=== PATIENT | female | born 1975 | race Caucasian/White ===

== ENCOUNTER 2017-02-11 15:02 | Emergency (ER) | payer MEDICAID ==
--- NOTE | 2017-02-11 15:39 | ED Physician Chart ---
ED Chief Complaint/HPI - Patient Information Date Seen:: 02/11/17 Time Seen:: 15:30 Chief Complaint:: right flank pain History of Present Illness:: patient has had right flank pain and dysuria for 3 days. No chills or fever. Historian:: Patient Review:: Nurse's Note Reviewed ED Review of Systems - Review of Systems General/Constitutional: No fever, No chills Skin: No skin lesions Head: No headache Eyes: No loss of vision ENT: No earache Neck: No neck pain Cardio Vascular: No chest pain, No palpitations Pulmonary: No SOB GI: No nausea, No vomiting G/U: Dysuria, Other (right flank pain) Musculoskeletal: Back pain Endocrine: No polyuria, No polydipsia Psychiatric: No prior psych history, No depression, No anxiety Hematopoietic: No bruising Allergic/Immuno: No urticaria Neurological: No syncope Family Medical History - Family Member Mother Ethnicity: Living Status: Hx Family Diabetes: Yes ED Physical Exam - Physical Examination General/Constitutional: Awake, Alert, No distress Head: Atraumatic Eyes: Lids, conjuctiva normal, PERRL Skin: Nl inspection, No rash ENMT: External ears, nose nl, Lips, teeth, gums nl Neck: No nuchal rigidity Respiratory: Nl effort/Exclusion, Clear to Auscultation Cardio Vascular: RRR, No murmur, gallop, rubs GI: No tenderness/rebounding/guarding, No organomegaly Other comments:: right flank tenderness Extremities: Normal digits & nails Neuro/Psych: Alert/oriented Misc: Normal back Other Misc comments:: right flank tenderness ED Labs/Radiology/EKG Results - Lab Results Comments:: Laboratory Results - last 24 hr 02/11/17 02/11/17 16:00 16:00 Urine Source MIDSTREAM Urine Color YELLOW Urine Clarity HAZY Urine pH 6.0 Ur Specific [employer] 1.015 Urine Protein TRACE Urine Glucose (UA) NEGATIVE Urine Ketones NEGATIVE Urine Blood LARGE H Urine Nitrate NEGATIVE Urine Bilirubin NEGATIVE Urine Urobilinogen 0.2 Ur Leukocyte Esterase NEGATIVE Urine RBC 25-50 H Urine WBC NONE SEEN Ur Epithelial Cells NONE SEEN Urine Bacteria NONE SEEN Urine Test NEGATIVE - Radiology Results Results: Renal ultrasound: mild right hydronephrosis ED Septic Shock - . Is Septic Shock (SBP<90, OR Lactate>4 mmol\L) present?: No ED Reassessment (Disposition) - Reassessment Reassessment:: at 1956 pain much improved Reassessment Condition:: Improved - Diagnosis Diagnosis:: right ureteral calculus - Aftercare/Follow up Instructions Aftercare/Follow-Up Instructions:: Refer to Discharge Instructions Medication Prescribed:: Ibuprofen 400 mg #30 Sig 1 TID - Patient Disposition Discharge/Transfer:: Home Condition at Disposition:: Stable, Improved
[2017-02-11 16:31] LABS: URINE BILIRUBIN NEGATIVE (NEGATIVE); URINE BLOOD LARGE (NEGATIVE); URINE GLUCOSE (UA) NEGATIVE (NEGATIVE); URINE KETONE NEGATIVE (NEGATIVE); URINE PROTEIN TRACE mg/dL (NEGATIVE); URINE UROBILINOGEN 0.2 E.U./dL (0.2 - 1.0)
[2017-02-11 16:39] LABS: URINE BACTERIA NONE SEEN /hpf (NONE SEEN); URINE COLOR YELLOW; URINE EPITHELIAL CELLS NONE SEEN /lpf (FEW); URINE RBC 25-50 /hpf (0-5); URINE WBC NONE SEEN /hpf (0-5)
--- NOTE | 2017-02-12 08:06 | Diagnostic Imaging Report ---
Renal ultrasound HISTORY: flank pain and hematuria. COMPARISON: None Technique: Sonography of the kidneys and urinary bladder was performed in multiple planes. FINDINGS: The right kidney measures 12.9 x 5.3 cm. There is mild right hydronephrosis. No sonographic evidence of renal stones. The left kidney measures 11.7 x 5.6 cm. No evidence of focal lesions or hydronephrosis. The prevoid bladder volume is 144 mL's. The postvoid bladder volume is 30 mL. IMPRESSION: Mild right hydronephrosis. Mild increased size of right kidney is also noted. No sonographic evidence of renal stones. If indicated CT examination may be obtained for further assessment of this finding. No evidence of elevated postvoid residual bladder volumes.
== END 2017-02-11 20:15 | disposition home or self-care (01) ==
LOC: ER 15:02
DX: N20.1 Calculus of ureter (principal)
CPT/HCPCS: 99285; 96372; 76770; 81001; 81025; J1885

== ENCOUNTER 2017-11-10 16:27 | Emergency (ER) | payer MEDICAID ==
--- NOTE | 2017-11-10 17:47 | ED Physician Chart ---
ED Chief Complaint/HPI - Patient Information Date Seen:: 11/10/17 Time Seen:: 16:30 Chief Complaint:: Left Foot Pain History of Present Illness:: onset x 3 hours of left foot pain after an accidental dropping of an object on pt's left toes/foot; pt's last tetanus shot: < 5 years; UTD; pt denies weakness , dizziness, paresthesias, vertigo, decreased activity, visual or gait changes, H/As, neck pain, C/P, SOB, Abd. Pain, A/N/V/D/C, fever, chills, or urinary s/s Allergies:: Allergies Allergy/AdvReac Type Severity Reaction Status Date / Time No Known Allergies Allergy Verified 02/11/17 16:15 Vitals:: Vital Signs - 8 hr 11/10/17 16:29 Temp 98.2 F HR 85 RR 18 BP 134/68 O2 Sat % 100 Historian:: Patient, Family Member Review:: Nurse's Note Reviewed ED Review of Systems - Review of Systems General/Constitutional: No fever, No chills, No weight loss, No weakness, No diaphoresis, No edema, No loss of appetite Skin: No skin lesions, No rash, No bruising Head: No headache, No light-headedness Eyes: No loss of vision, No pain, No diplopia ENT: No earache, No nasal drainage, No sore throat, No tinnitus Neck: No neck pain, No swelling, No thyromegaly, No stiffness, No mass noted Cardio Vascular: No chest pain, No palpitations, No PND, No orthopnea, No edema Pulmonary: No SOB, No cough, No sputum, No wheezing GI: No nausea, No vomiting, No diarrhea, No pain, No melena, No hematochezia, No constipation, No hematemesis G/U: No dysuria, No frequency, No hematuria, No nacturia Unemployment Examiner: No vaginal discharge, No abnormal vaginal bleed, No contraction Musculoskeletal: Bone or joint pain, No back pain, Muscle pain Endocrine: No polyuria, No polydipsia Psychiatric: No prior psych history, No depression, No anxiety, No suicidal ideation, No homicidal ideation, No auditory hallucination, No visual hallucination Hematopoietic: No bruising, No lymphadenopathy Allergic/Immuno: No urticaria, No angioedema Neurological: No syncope, No focal symptoms, No weakness, No paresthesia, No headache, No seizure, No dizziness, No confusion, No vertigo ED Past Medical History - Past Medical History Obtainable: Yes Past Medical History: No significant medical hx Family History: HTN Social History: Non Smoker, No Alcohol, No Drug Use, Surgical History: None Psychiatricy History: None Medication: Reviewed Family Medical History - Family Member Mother History Unknown: Yes Ethnicity: Living Status: Hx Family Diabetes: Yes ED Physical Exam - Physical Examination General/Constitutional: Awake, Well-developed, well-nourished, Alert, No distress, GCS 15, Non-toxic appearing, Ambulatory Head: Atraumatic Eyes: Lids, conjuctiva normal, PERRL, EOMI Skin: Nl inspection, No rash, No skin lesions, No ecchymosis, Well hydrated, No lymphadenopathy ENMT: External ears, nose nl, TM canals nl, Nasal exam nl, Lips, teeth, gums nl , Oropharynx nl, Tonsils nl Neck: Nontender, Full ROM w/o pain, No JVD, No nuchal rigidity, No bruit, No mass, No stridor Other Neck comments:: supple; no meningeal signs; no cervical tenderness Respiratory: Nl effort/Exclusion, Clear to Auscultation, No Wheeze/Rhonchi/Rales Cardio Vascular: RRR, No murmur, gallop, rubs, NL S1 S2, Carotid/Femoral/Distal pulses equal bilaterally GI: No tenderness/rebounding/guarding, No organomegaly, No hernia, Normal BS's, Nondistended, No mass/bruits, No McBurney tenderness, Rectum exam nl Other GI comments:: no pulsatile masses : No CVA tenderness Extremities: No tenderness or effusion, Full ROM, normal strength in all extremities, No edema, Normal digits & nails Other Extremities comments:: Left Foot: + Left 2nd Toe tenderness with no loss of ROMs; no ligament instability; Gait: WNL; good motor, tendon, and sensory functions; good NV functions; no FBs; no cellulitis; no PWs Neuro/Psych: Alert/oriented, DTR's symmetric, Normal sensory exam, Normal motor strength, Judgement/insight normal, Mood normal, Normal gait, No focal deficits Other Neuro/Psych comments:: no focal signs Misc: Normal back, No paraspinal tenderness ED Labs/Radiology/EKG Results - Lab Results Results: Laboratory Tests 11/10/17 16:40 Urine Test NEGATIVE Comments:: UCG: Negative - Radiology Results Comments:: ? Hailine Fx at PP of Left 2nd Toe ED Septic Shock - . Is Septic Shock (SBP<90, OR Lactate>4 mmol\L) present?: No - <6hrs of presentation: Vital Signs: Vital Signs - 8 hr 11/10/17 16:29 Temp 98.2 F HR 85 RR 18 BP 134/68 O2 Sat % 100 ED Reassessment (Disposition) - Reassessment Reassessment:: pt is asymptomatic upon discharge Reassessment Condition:: Improved - Diagnosis Diagnosis:: Dx: Left Toe Pain; Left Second Toe Fracture; Left Foot/Toes Sprains and Strains ; Left Foot/Toes Pain; Left Foot/Toes Injury - Aftercare/Follow up Instructions Aftercare/Follow-Up Instructions:: Counseled pt regarding lab results/diagnosis & need follow up, Refer to Discharge Instructions, Counseled pt & family regarding lab results/diagnosis & need follow up - Patient Disposition Discharge/Transfer:: Home Condition at Disposition:: Stable, Improved (RTER prn if existing s/s reoccur and/or get worse and/or any other new s/s occur; X-Rays Instructions; ACIs given for all above Dx; Refer to Orthopedist/Center Medical Director/Power Washer LEFTY; F/U with PMD in one day or prn; RTER prn if concerned)
--- NOTE | 2017-11-11 08:35 | Diagnostic Imaging Report ---
Left foot 3 views Indication: Trauma Comparison: none Findings: There is blunting involving the second distal phalanx. There appears to be subluxation involving the second proximal interphalangeal joint. No gross fracture is identified. Mild degenerative changes are noted. Mild generalized soft tissue prominence is noted. Impression: Blunting of the second distal phalanx. This may have been due to old trauma or other infectious or inflammatory process. Please correlate with medical history and old exams. Subluxation of the second proximal interphalangeal joint. Please correlate clinically. No gross acute fracture identified. In the setting of trauma, if clinical symptoms persist and there is continued concern for an occult fracture, follow up exams in 5-7 days is suggested.
== END 2017-11-10 19:10 | disposition home or self-care (01) ==
LOC: ER 16:27
DX: S92.502A Displaced unspecified fracture of left lesser toe(s), initial encounter for closed fracture (principal); W20.8XXA Other cause of strike by thrown, projected or falling object, initial encounter; Y93.89 Activity, other specified; Y92.89 Other specified places as the place of occurrence of the external cause; Y99.8 Other external cause status
CPT/HCPCS: 99285; 96372; 73630; 81025; J1885

== ENCOUNTER 2019-02-01 20:35 | Emergency (ER) | payer MEDICAID ==
--- NOTE | 2019-02-01 21:03 | ED Physician Chart ---
ED Chief Complaint/HPI - Patient Information Date Seen:: 02/01/19 Time Seen:: 20:58 Chief Complaint:: headache History of Present Illness:: 43 yr old female with occas headache bp problems who ate salty foods today with neck pain headache 3 pm today some nausea no vomiting Allergies:: Allergies Allergy/AdvReac Type Severity Reaction Status Date / Time No Known Allergies Allergy Verified 02/11/17 16:15 Vitals:: Vital Signs - 8 hr 02/01/19 20:36 Temp 97.5 F HR 84 RR 18 BP 129/57 O2 Sat % 98 ED Review of Systems - Review of Systems General/Constitutional: No fever, No chills, No weight loss, No weakness, No diaphoresis, No edema, No loss of appetite Skin: No skin lesions, No rash, No bruising Head: No headache, No light-headedness Eyes: No loss of vision, No pain, No diplopia ENT: No earache, No nasal drainage, No sore throat, No tinnitus Neck: No neck pain, No swelling, No thyromegaly, No stiffness, No mass noted Cardio Vascular: No chest pain, No palpitations, No PND, No orthopnea, No edema Pulmonary: No SOB, No cough, No sputum, No wheezing GI: No nausea, No vomiting, No diarrhea, No pain, No melena, No hematochezia, No constipation, No hematemesis G/U: No dysuria, No frequency, No hematuria Musculoskeletal: No bone or joint pain, No back pain, No muscle pain Endocrine: No polyuria, No polydipsia Psychiatric: No prior psych history, No depression, No anxiety, No suicidal ideation Hematopoietic: No bruising, No lymphadenopathy Allergic/Immuno: No urticaria, No angioedema Neurological: Headache ED Past Medical History - Past Medical History Past Medical History: No significant medical hx Family Medical History - Family Member Mother History Unknown: Yes Ethnicity: Living Status: Hx Family Diabetes: Yes ED Physical Exam - Physical Examination General/Constitutional: Awake, Well-developed, well-nourished, Alert, No distress, GCS 15, Non-toxic appearing, Ambulatory Head: Atraumatic Eyes: Lids, conjuctiva normal, PERRL, EOMI Skin: Nl inspection, No rash, No skin lesions, No ecchymosis, Well hydrated, No lymphadenopathy ENMT: External ears, nose nl, Nasal exam nl, Lips, teeth, gums nl Neck: Nontender, Full ROM w/o pain, No JVD, No nuchal rigidity, No bruit, No mass, No stridor Respiratory: Nl effort/Exclusion, Clear to Auscultation, No Wheeze/Rhonchi/Rales Cardio Vascular: RRR, No murmur, gallop, rubs, NL S1 S2 GI: No tenderness/rebounding/guarding, No organomegaly, No hernia, Normal BS's, Nondistended, No mass/bruits, No McBurney tenderness : No CVA tenderness Extremities: No tenderness or effusion, Full ROM, normal strength in all extremities, No edema, Normal digits & nails Neuro/Psych: Alert/oriented, DTR's symmetric, Normal sensory exam, Normal motor strength, Judgement/insight normal, Mood normal, Normal gait, No focal deficits Misc: Normal back, No paraspinal tenderness ED Assessment - Assessment General Assessment: headache ED Septic Shock - . Is Septic Shock (SBP<90, OR Lactate>4 mmol\L) present?: No - <6hrs of presentation: Vital Signs: Vital Signs - 8 hr 02/01/19 20:36 Temp 97.5 F HR 84 RR 18 BP 129/57 O2 Sat % 98 ED Reassessment (Disposition) - Reassessment Reassessment:: headache - Diagnosis Diagnosis:: as above - Patient Disposition Discharge/Transfer:: Home
== END 2019-02-01 21:20 | disposition home or self-care (01) ==
LOC: ER 20:35
DX: R51 Headache (principal)
CPT/HCPCS: 81025-TC; Z7502